=== PATIENT | male | born 1995 ===

== ENCOUNTER 2018-01-24 10:56 | Emergency (ER) | payer OTHER ==
--- NOTE | 2018-01-24 11:22 | UC ---
Throat Pain/Nasal Charles HPI - HPI Summary HPI Summary: 22 yo male presents with sore throat, sinus congestion, and fever for the last 3 days. Fever this morning was at its highest (101F). sore throat seems a little better today, but sinuses are worse. Has not taken anything OTC. Denies chills, cough, SOB, chest pain, abdominal pain, n/v. - History of Current Complaint Chief Complaint: UCRespiratory Stated Complaint: FEVER Hx Obtained From: Patient Onset/Duration: Gradual Onset Severity: Mild Pain Intensity: 4 Pain Scale Used: 0-10 Numeric - Allergies/Home Medications Allergies/Adverse Reactions: Allergies Allergy/AdvReac Type Severity Reaction Status Date / Time No Known Allergies Allergy Verified 01/24/18 11:13 Home Medications: Home Medications Acetaminophen [APAP] 650 mg PO Q8HR PRN 01/24/18 [History Confirmed 01/24/18] PMH/Surg Hx/FS Hx/Imm Hx - Additional Past Medical History Additional PMH: None Previously Healthy: Yes - Surgical History Surgical History: None - Family History Known Family History: Positive: None - Social History Occupation: Student Lives: With Family Alcohol Use: None Substance Use Type: None Smoking Status (MU): Never Smoked Tobacco Review of Systems Constitutional: Fever Skin: Negative Eyes: Negative ENT: Sore Throat, Sinus Congestion, Sinus Pain/Tenderness Respiratory: Negative Cardiovascular: Negative Gastrointestinal: Negative Neurovascular: Negative Neurological: Negative Psychological: Negative All Other Systems Reviewed And Are Negative: Yes Physical Exam - Summary Physical Exam Summary: GENERAL: NAD. WDWN. No pain distress. SKIN: No rashes, sores, lesions, or open wounds. HEENT: Head: AT/NC Eyes: Conjunctiva clear without inflammation or discharge. Ears: Hearing grossly normal. TMs intact, no bulging, erythema, or edema. Nose: Nasal mucosa mildly swollen and erythematous with clear discharge. NTTP maxillary and frontal sinus. Throat: Posterior oropharynx moderate erythema. No tonsillar enlargement. No exudates. Uvula midline. No hoarse voice or muffled voice. NECK: Supple. Mild TTP b/l tonsillar LAD. CHEST: CTAB. No r/r/w. No accessory muscle use. Breathing comfortably and in no distress. CV: RRR. Without m/r/g. Pulses intact. Brisk cap refill. NEURO: Alert. CN II-XII grossly intact. PSYCH: Age appropriate behavior. Triage Information Reviewed: Yes Vital Signs: Initial Vital Signs Temp 99.3 F 01/24/18 11:11 Pulse 94 01/24/18 11:11 Resp 18 01/24/18 11:11 BP 99/62 01/24/18 11:11 Pulse Ox 100 01/24/18 11:11 Throat Pain/Nasal Course/Dx - Course Course Of Treatment: POC strep negative. Pharyngitis and sinusitis - Differential Dx/Diagnosis Provider Diagnoses: Pharyngitis. Sinusitis Discharge - Sign-Out/Discharge Documenting (check all that apply): Discharge/Admit/Transfer - Discharge Plan Condition: Stable Disposition: HOME Prescriptions: Amoxicillin PO (*) [Amoxicillin 500 MG CAP*] 500 mg PO Q12H #14 cap Patient Education Materials: Pharyngitis (ED), Sinusitis (ED) Referrals: No Primary Care Phys,NOPCP [Primary Care Provider] - Additional Instructions: If you develop a fever, shortness of breath, chest pain, new or worsening symptoms - please call your PCP or go to the ED. 1) If fever of 101F or 102F may take tylenol 650mg every 6-8hours OR 975mg every 8 hours as needed 2) May also try over the counter NASONEX nasal spray for relief of sinus congestion and inflammation - Billing Disposition and Condition Condition: STABLE Disposition: HOME
== END 2018-01-24 11:59 | disposition home or self-care (01) ==
LOC: UCEAST 10:56
DX: J02.9 Acute pharyngitis, unspecified (principal); J32.9 Chronic sinusitis, unspecified
CPT/HCPCS: 87651; 99202; G0463